=== PATIENT | male | born 1995 | race African-American/Black ===

== ENCOUNTER 2019-10-11 11:54 | Emergency (ER) | payer SELFPAY ==
[~2019-10-11] VITALS: Ht 182.9 cm; Wt 72.7 kg
[2019-10-11 12:08] VITALS: Ht 182.9 cm; Wt 72.7 kg
[2019-10-11] MEDS ORDERED: VOLTAREN75 MG PO (12:29)
[2019-10-11 12:35] VITALS: BP 140/86
== END 2019-10-11 12:38 | disposition home or self-care (01) ==
LOC: D.ER 11:54
DX: H92.01 Otalgia, right ear (principal); M26.609 Unspecified temporomandibular joint disorder, unspecified side